=== PATIENT | male | born 1965 | race Caucasian/White ===

== ENCOUNTER 2023-12-11 05:29 | Emergency (ER) | payer OTHER, SELFPAY ==
[2023-12-11 05:35] VITALS: BP 145/95
[2023-12-11 05:40] VITALS: BP 145/95
[2023-12-11 05:53] VITALS: BP 143/81
--- NOTE | 2023-12-11 06:35 | ED.GENMED ---
History of Present Illness
General
Chief Complaint: Skin Problem
Time Seen by Provider: 12/11/23 06:35
History of Present Illness
History of Present Illness:
HPI: Patient presents due to concerns of worsening poison gloria type of rash. He states he was mowing lawn a few days ago. Worsening swelling of face, RUL greater than left upper extremity rash. Lesser rash noted to the lower extremities. There is
no problem breathing. He has been having trouble sleeping due to the pruritus.
EXAM:
GENERAL: Well appearing in mild distress related to pruritus for rash
HEENT: Moist oral mucosa, widely patent posterior oropharynx, periorbital edema noted
NEUROLOGIC: Excellent strength all extremities, no obvious coordination deficits
PSYCHIATRIC: Appropriate mental status, normal insight and judgement
SKIN: Extensive erythematous lesions consistent with poison gloria type of dermatitis most notable to the face and right upper extremity with lesser involvement to the left upper extremity and lower extremities
TIME OF INITIAL ENCOUNTER: 6:30 AM
NUMBER AND COMPLEXITY OF PROBLEMS ADDRESSED AT THE ENCOUNTER
� Chronic conditions affecting care: No significant past medical history
� Acute Exacerbation and/or Progression of Chronic Illness: This is an acute problem
� Differential Diagnosis includes: Poison gloria, doubt cellulitis, other dermatitis
AMOUNT AND/OR COMPLEXITY OF DATA TO BE REVIEWED AND ANALYZED
� I performed an independent evaluation of and my interpretation is:
EKG:
CT:
X-rays:
Laboratory Studies:
Other:
� Review of other/old records: No old records available for review in [facility]
� Clinical information was obtained by an independent historian: I spoke to the at bedside
� Prescriptions/Medications Considered but not given: Considered IV treatment but he has not taken anything yet so we will just start with oral steroids
� Further testing considered but not performed:
RISK OF COMPLICATIONS AND/OR MORBIDITY OR MORTALITY OF PATIENT MANAGEMENT
� Social determinants of health affecting care: Lives at home
� Discussion with other providers:
� Escalation of care including admission/observation vs risk of discharge considered: Will start prolonged steroid taper and he is to start Benadryl as well.
Phy Exam
Physical Exam
Physical Exam:
See HPI
Course
Orders/Labs/Results
Orders:
Orders
12/11/23 07:06
Prednisone [Deltasone] 50 mg PO NOW STA
12/11/23 07:17
Diphenhydramine [Benadryl] 25 mg PO NOW STA
Vital Signs
Initial and Last Documented VS:
Initial Vital Signs
Temp Pulse Resp BP Pulse Ox
99.3 F 121 20 145/95 99
12/11/23 05:35 12/11/23 05:35 12/11/23 05:35 12/11/23 05:35 12/11/23 05:35
Last Documented Vital Signs
Temp Pulse Resp BP Pulse Ox
99.3 F 90 16 141/78 99
12/11/23 05:40 12/11/23 07:23 12/11/23 07:23 12/11/23 07:23 12/11/23 07:23
*Critical Care Note
Total Time (30-74mins, 75-104mins- exclusive of procedures): Not Applicable
ED Attending Note
-
Portions of this chart may have been created with voice recognition software.� Occasional wrong word or��sound alike� substitutions may have occurred due to the inherent limitations of voice recognition software.
Discharge Plan
Departure
Patient Disposition: Home (Routine Discharge)
Date of Disposition: 12/11/23
Time of Disposition: 07:07
Patient with high blood pressure during this ER visit?: Yes
Discharge Problem:
Allergic dermatitis due to poison gloria
Instructions: Poison Gloria, Poison [place], Poison [place] [facility], BLOOD PRESSURE
Prescriptions:
New
prednisone 10 mg tablet
10 mg PO DIRECTED Qty: 30 0RF
Rx Instructions:
4 tabs x 3days, 3 tabs x 3days, 2 tabs x 3days, 1tab x 3 days
Referrals:
NONE,* [Family Provider] -
Activity Restrictions/Additional Instructions:
Next dose of steroids tomorrow. Return here if worse. Continue [id number] Benadryl to help with the itchiness.
Interventions
Interventions:
*Risk Screen - Suicide Last Done: 12/11/23 05:35
*General Assessment Last Done: 12/11/23 05:35
*Neglect/Abuse Screening Last Done: 12/11/23 05:35
ED- Fall Risk Assessment Last Done: 12/11/23 05:35
*ED COVID-19 Vaccine History Last Done: 12/11/23 05:35
*Nursing Disposition Last Done: 12/11/23 07:23
ED-Skin Assessment Last Done: 12/11/23 05:51
Discharge Date and Time
Discharge Date/Time: 12/11/23 07:23
Print Language: VENEZUELAN
[2023-12-11] MEDS: DELTASONE 50 MG PO (07:20)
[2023-12-11] MEDS: BENADRYL 25 MG PO (07:20)
[2023-12-11 07:23] VITALS: BP 141/78
== END 2023-12-11 07:23 | disposition home or self-care (01) ==
LOC: EMR 05:29
PROVIDERS: EMERGENCY PHYSICIAN Emergency Medicine
DX: L23.7 Allergic contact dermatitis due to plants, except food (principal); Z79.52 Long term (current) use of systemic steroids
CPT/HCPCS: 99282